=== PATIENT | male | born 1960 | race Caucasian/White ===

== ENCOUNTER → 2018-06-03 | Outpatient (CLI) | payer OTHER ==
[~2018-06-03] VITALS: Ht 182.9 cm; Wt 122.5 kg
[~2018-06-03] MED LIST: ASPIR 8181 MG PO; GLUCOSAMINE CH1 EAC7 PO; LISINOPRIL20 MG PO; SIMVASTATIN40 MG PO
--- NOTE | ~2018-06-03 | P ---
[facility] [place] [address] PROCEDURE REPORT Name: ETHAN KATHLEEN Room #: REG SAMY Pack#: [id number] Admission: 06/03/18 Attend Phys: Gavino Bonds Discharge: Date of : 62 Report #: [id number] THIS REPORT FOR: //name// CC: Darshan Alicia DATE OF SERVICE: 06/03/2018 PROCEDURE PERFORMED: Colonoscopy with biopsies. HISTORY OF PRESENT ILLNESS: The patient is a 57-year-old male who presents today for routine screening colonoscopy. Denies any symptoms. No family history of colon cancer. The patient has had a previous sphincterotomy years ago for possible anal fissure at that time. DESCRIPTION OF PROCEDURE: The risks and benefits of the procedure were explained to the patient, those risks including, but not limited to bleeding, perforation, and the risk of sedation. He understood these risks and gave informed consent. Sedation was given using propofol per anesthesia. Next, a digital rectal exam was initially performed, which was normal. Next, using a standard Olympus colonoscope, the scope was placed in the patient's anus and advanced under direct vision to the cecum. The overall prep was excellent. The cecum and ileocecal valve were normal in appearance. Terminal ileum was intubated and normal in appearance. In the proximal ascending colon, a 3-mm sessile polyp was noted. This was removed with cold forceps, otherwise normal. Transverse, descending and sigmoid colon were normal. In the rectum, a 4-mm sessile polyp was noted, also removed with cold forceps. On retroflexion, small nonbleeding internal hemorrhoids were noted, otherwise normal colonoscopy. The scope was then withdrawn and the procedure terminated. The patient tolerated the procedure well. IMPRESSION: 1. Two small colonic polyps. 2. Small internal hemorrhoids. 3. Otherwise, normal colonoscopy. RECOMMENDATIONS: 1. Await biopsy results. 2. If polyps are hyperplastic, repeat in 10 years; if adenomatous polyp, repeat in [address] [address] PROCEDURE REPORT Name: ETHAN KATHLEEN Room #: REG SAMY Pack#: [id number] Admission: 06/03/18 Attend Phys: Gavino Bonds Discharge: Date of : 62 Report #: [id number] Thank you for allowing me to participate in his care. <ELECTRONICALLY SIGNED> By: Gavino Alicia MD 06/06/18 1229 0941 1220 Gavino Alicia MD /nt
--- NOTE | ~2018-06-03 | PATH ---
[facility] [place] [address] [place] [address] PATHOLOGY RPT PROCEDURE Name: FRANNIEETHAN Shweta Room #: REG SAMY Cabrera.#: [id number] Admission: 06/03/18 Date of : 62 Discharge: Report #: [id number] Path Case #: [id number] [facility] Accession Number: [id number] . 01 Material submitted: . PART A: POLYP AT ASCENDING COLON PART B: POLYP AT RECTUM . 01 Clinical history: . Pre-OP DX: Colon screening Post-OP DX: Colon polyps . 02 Diagnosis: A. Polyp, at ascending colon, endoscopic biopsy: - Hyperplastic polyp. - Negative for dysplasia. . B. Polyp, at rectum, endoscopic biopsy: - Hyperplastic polyp. - Negative for dysplasia. (IUV:pit 06/06/2018) QTP/06/06/2018 . 02 Electronically signed: . Ashleigh Martinez MD, Pathologist NPI- [id number] . 01 Gross description: . A. Received in formalin labeled "Ethan Asher, polyp at ascending colon," are 2 segments of colby soft tissue measuring 0.8 x 0.2 x 0.2 cm in aggregate dimensions and measuring 0.4 cm each in maximum dimension. The specimen is submitted entirely in cassette A1. . B. Received in formalin labeled "Ethan Asher, polyp at rectum," are 3 segments of colby soft tissue measuring 0.9 x 0.7 x 0.2 cm in aggregate dimensions and ranging from 0.3 to 0.7 cm in maximum dimension. The specimen is submitted entirely in cassette B1. (TSD; 06/03/2018) TOB/TOB . 02 Pathologist provided ICD-10: K63.5, K62.1 . 02 CPT . 015569, 828527 Specimen Comment: A courtesy copy of this report has been sent to Specimen Comment: [phone], [phone]. [address] [address] PATHOLOGY RPT PROCEDURE Name: ETHAN ASHER Room #: REG [facility]#: [id number] Admission: 06/03/18 Date of : 62 Discharge: Report #: [id number] Path Case #: [id number] Specimen Comment: Report sent to / DR RODRIGUEZ Performed at: 01 [facility] [address], [place], [place] [id number] MD Onel Moya MD Phone: [phone] Performed at: [address] [id number] MD Ashleigh Martinez MD Phone: [phone]
== END | disposition home or self-care (01) ==
LOC: GI 08:14
DX: Z12.11 Encounter for screening for malignant neoplasm of colon (principal); K63.5 Polyp of colon; K64.8 Other hemorrhoids; Z68.36 Body mass index [BMI] 36.0-36.9, adult; G47.30 Sleep apnea, unspecified; I10 Essential (primary) hypertension; E78.5 Hyperlipidemia, unspecified
CPT/HCPCS: 62110; 62900